=== PATIENT | female | born 2000 | race Caucasian/White ===

== ENCOUNTER 2020-08-30 06:01 | Inpatient (IN) ==
[2020-08-30] MEDS ORDERED: LACTATED RINGERS 500 ML IV PRN (06:13)
[2020-08-30] MEDS ORDERED: ONDANSETRON 4 MG/2 ML VIAL IV PRN (06:13)
[2020-08-30 07:02] LABS: Basophils % 0.2 % (0.0-0.8); Eosinophils # 0.2 10*3/uL (0.0-0.87); Eosinophils % 1.5 % (0.00-10.9); Hematocrit 34.9 VOL% (35.7-47.0); Hemoglobin 10.9 GM/DL (12.0-16.0); Immature Granulocytes % 0.5 %; Immature Granulocytes Absolute 0.05 #; Lymphocytes # 2.3 10*3/uL (1.4-4.0); Lymphocytes % 21.4 % (21.3-54.2); Mean Corpuscular HGB Conc 31.2 GM/DL (32-36); Mean Corpuscular Volume 90.6 FL (87-102); Mean Platelet Volume 10.1 FL (9.6-12.0); Monocytes % 6.9 % (1.7-12.7); Neutrophils % 69.5 % (38.7-73.9); Platelet Count 264 T/CUMM (130-400); Red Blood Count 3.85 MC/CUMM (3.8-5.5); Red Cell Distribution Width 16.5 % (9.3-17.3); White Blood Count 10.7 T/CUMM (4-12)
[2020-08-31] MEDS ORDERED: OXYTOCIN/LR 20 UNIT/1,000 ML BAG IV ONE ×3 (00:06→19:06)
[2020-08-31] MEDS: BUTORPHANOL 2 MG/ML VIAL IV PRN ×2 (00:20→03:27)
[2020-08-31] MEDS: LACTATED RINGERS 1,000 ML IV SCH ×3 (00:28→08:34)
[2020-08-31] MEDS ORDERED: OXYTOCIN/LR 20 UNIT/1,000 ML BAG IV SCH (00:30)
[2020-08-31] MEDS ORDERED: diphenhydrAMINE 50 MG/1 ML VIAL IV PRN ×3 (00:43→06:42)
[2020-08-31] MEDS ORDERED: ONDANSETRON 4 MG/2 ML VIAL IV ONE (06:42)
[2020-08-31] MEDS ORDERED: FAMOTIDINE 20 MG/2 ML VIAL IV ONE (06:42)
[2020-08-31] MEDS ORDERED: PROMETHAZINE 25 MG/1 ML VIAL IM ONE (06:42)
[2020-08-31] MEDS ORDERED: NALOXONE 0.4 MG/ML VIAL IV PRN (06:42)
[2020-08-31] MEDS ORDERED: hydrOXYzine HCL 25 MG/1 ML VIAL IM PRN (06:42)
[2020-08-31] MEDS ORDERED: ePHEDrine 50 MG/ML VIAL IV PRN (06:42)
[2020-08-31] MEDS ORDERED: CITRIC ACID/SODIUM CITRATE 30 ML UDCUP PO ONE (06:42)
[2020-08-31] MEDS: fentaNYL 2 MCG/ROPIV 0.2% EPID 100 ML EPIDURAL SCH ×2 (07:59→16:45)
[2020-08-31 10:16] LABS: Bilirubin,Urine Negative (Negative); Blood, Urine Moderate mg/dL (Negative); Glucose,Urine (UA) Negative (Negative); Ketones,Urine Negative (Negative); Nitrite,Urine Negative (Negative); Protein,Urine Negative; Squamous Epithelial Cell,Urine Occasional /HPF (0-10); Urine Appearance CLEAR (Clear); Urine Color Straw (Yellow); Urine Specific Gravity 1.003 (1.001-1.035); Urine Urobilinogen < 2.0 EU/DL (0.2-1.0); WBC,Urine <1 /HPF (0-6)
[2020-08-31] MEDS ORDERED: ceFAZolin 3,000 MG in SYRINGE 1 EACH IV ONE (17:32)
[2020-08-31] MEDS ORDERED: LIDOCAINE MPF 2% /EPI 20 ML VIAL ONE (17:52)
[2020-08-31] MEDS ORDERED: DEXAMETHASONE 4 MG/1 ML VIAL ONE (17:53)
[2020-08-31] MEDS ORDERED: ONDANSETRON 4 MG/2 ML VIAL ONE (17:53)
[2020-08-31] MEDS ORDERED: TRANEXAMIC ACID 1,000 MG/10 ML VIAL ONE (17:56)
[2020-08-31] MEDS ORDERED: miSOPROStoL 200 MCG TABLET ONE (17:56)
[2020-08-31] MEDS ORDERED: CARBOPROST TROMETHAMINE 250 MCG/ML AMP IM ONE (17:57)
[2020-08-31] MEDS ORDERED: METHYLERGONOVINE 0.2 MG/1 ML AMP ONE (17:57)
[2020-08-31] MEDS ORDERED: SODIUM BICARBONATE 10 MEQ/10 ML SYRINGE IV ONE (17:58)
[2020-08-31] MEDS ORDERED: OXYTOCIN 10 UNIT/ML VIAL ONE (18:12)
[2020-08-31] MEDS ORDERED: SODIUM CHLORIDE 0.9% 100 ML IV ONE (18:28)
[2020-08-31] MEDS ORDERED: PHENYLEPHRINE 1 MG/10 ML SYRINGE IV ONE ×2 (18:34→18:53)
[2020-08-31] MEDS ORDERED: fentaNYL 100 MCG/2 ML VIAL ONE (18:35)
[2020-08-31] MEDS ORDERED: KETAMINE 500 MG/10 ML VIAL ONE (18:36)
[2020-08-31 18:53] LABS: Cord Arterial Blood HCO3 20.5 MMOL/L
[2020-08-31 18:56] LABS: Cord Venous Blood HCO3 21.5 MMOL/L; Cord Venous Blood PCO2 54.5 MMHG
[2020-08-31 19:02] LABS: Cord Venous Blood PO2 14.9
[2020-08-31] MEDS ORDERED: ACETAMINOPHEN 325 MG TABLET PO PRN (19:06)
[2020-08-31] MEDS ORDERED: ONDANSETRON 4 MG/2 ML VIAL IV PRN (19:06)
[2020-08-31] MEDS ORDERED: MEASLES/MUMPS/RUBELLA VACCINE 0.5 ML VIAL SUBCUT ONE (19:06)
[2020-08-31] MEDS ORDERED: RHO(D) IMMUNE GLOBULIN 300 MCG SYRINGE IM ONE (19:06)
[2020-08-31] MEDS ORDERED: DIPH/TET/ACEL PERT BOOSTER VACCINE 0.5 ML VIAL IM ONE (19:06)
[2020-08-31] MEDS ORDERED: oxyCODONE/ACETAMINOPHEN 5-325 MG TABLET PO PRN (19:08)
[2020-08-31] MEDS ORDERED: LACTATED RINGERS 1,000 ML IV SCH (19:30)
[2020-08-31] MEDS ORDERED: HYDROmorphone 2 MG/1 ML VIAL IV SCH (20:30)
[2020-08-31] MEDS: DOCUSATE SODIUM 100 MG CAPSULE PO SCH (23:10)
[2020-09-01] MEDS: ceFAZolin 1,000 MG in SYRINGE 1 EACH IV SCH ×2 (02:12→09:02)
[2020-09-01 06:37] LABS: Basophils % 0.1 % (0.0-0.8); Hematocrit 31.7 VOL% (35.7-47.0); Hemoglobin 9.8 GM/DL (12.0-16.0); Immature Granulocytes % 0.5 %; Immature Granulocytes Absolute 0.08 #; Lymphocytes # 1.2 10*3/uL (1.4-4.0); Lymphocytes % 7.4 % (21.3-54.2); Mean Corpuscular HGB Conc 30.9 GM/DL (32-36); Mean Corpuscular Volume 90.1 FL (87-102); Mean Platelet Volume 10.7 FL (9.6-12.0); Monocytes % 5.2 % (1.7-12.7); Neutrophils % 86.8 % (38.7-73.9); Platelet Count 227 T/CUMM (130-400); Red Blood Count 3.52 MC/CUMM (3.8-5.5); Red Cell Distribution Width 16.3 % (9.3-17.3); White Blood Count 15.7 T/CUMM (4-12)
[2020-09-01] MEDS: MULTIVITAMIN (PRENATAL) TABLET PO SCH (08:46)
[2020-09-01] MEDS: DOCUSATE SODIUM 100 MG CAPSULE PO SCH ×2 (08:46→20:45)
[2020-09-01] MEDS: IBUPROFEN 800 MG TABLET PO PRN ×2 (08:46→20:45)
[2020-09-01] MEDS: oxyCODONE/ACETAMINOPHEN 5-325 MG TABLET PO PRN ×3 (08:48→20:45)
[2020-09-01] MEDS ORDERED: INFLUENZA VIRUS VACCINE 0.5 ML SYRINGE IM ONE (15:05)
[2020-09-01] MEDS: MAGNESIUM HYDROXIDE SUSP 30 ML UDCUP PO PRN (20:45)
[2020-09-01] MEDS: SIMETHICONE CHEW 80 MG TABLET PO PRN (20:45)
[2020-09-02] MEDS: IBUPROFEN 800 MG TABLET PO PRN ×2 (02:22→12:53)
[2020-09-02] MEDS: oxyCODONE/ACETAMINOPHEN 5-325 MG TABLET PO PRN ×2 (02:22→08:35)
[2020-09-02] MEDS: MAGNESIUM HYDROXIDE SUSP 30 ML UDCUP PO PRN (08:35)
[2020-09-02] MEDS: MULTIVITAMIN (PRENATAL) TABLET PO SCH (08:35)
[2020-09-02] MEDS: DOCUSATE SODIUM 100 MG CAPSULE PO SCH (08:35)
[2020-09-02] MEDS: SIMETHICONE CHEW 80 MG TABLET PO PRN (08:35)
[2020-09-02 13:39] VITALS: BP 128/67
== END 2020-09-02 15:10 | disposition home or self-care (01) | DRG 540 ==
LOC: N.LD 06:01 → N.OB 08-31 23:10
PROVIDERS: ADMIT Obstetrics & Gynecology; ATTEND Obstetrics & Gynecology
PROC: LDCSECT (ICD-10-PCS; 2020-08-31 18:00)